=== PATIENT | female | born 1980 | race Caucasian/White ===

== ENCOUNTER 2017-04-29 14:04 | Inpatient (IN) | payer BC ==
[~2017-04-29] VITALS: Ht 162.6 cm; Wt 79.1 kg
[2017-04-29 14:24] VITALS: BP 135/80
[2017-04-29] MEDS ORDERED: NEWBORN KIT ONE (16:50)
[2017-04-29] MEDS ORDERED: OXYTOCIN 30U/ 0.9% NaCL 500ML 500 ML IV ONE (17:09)
[2017-04-29] MEDS ORDERED: FENTANYL PF 100 MCG/2ML IV PRN (17:30)
[2017-04-29] MEDS ORDERED: ONDANSETRON 2MG/ML, 2ML IVPush PRN (17:30)
[2017-04-29] MEDS ORDERED: FENTANYL PF 100 MCG/2ML IVPush PRN (17:30)
[2017-04-29] MEDS ORDERED: SODIUM CHLORIDE FLUSH 10ML SYR IVF PRN (17:30)
[2017-04-29 17:38] LABS: HEMATOCRIT 42.8 % (34.6-47.8); HEMOGLOBIN 14.4 g/dL (11.7-16.4); WHITE BLOOD COUNT 9.1 x10^3/uL (3.4-10)
[2017-04-30] MEDS ORDERED: AMPICILLIN 2 GM in SODIUM CHLORIDE 0.9% 50 ML IVPB ONE
[2017-04-30] MEDS: LACTATED RINGERS 1,000 ML IV SCH ×4 (03:48→22:46)
[2017-04-30] MEDS: AMPICILLIN 1 GM in SODIUM CHLORIDE 0.9% 50 ML IVPB SCH ×5 (03:59→20:11)
[2017-04-30] MEDS ORDERED: OXYTOCIN 30U/ 0.9% NaCL 500ML 500 ML ONE (08:06)
[2017-04-30] MEDS ORDERED: OXYTOCIN 30U/ 0.9% NaCL 500ML 500 ML IV PRN (08:30)
[2017-04-30] MEDS ORDERED: LIOT5TAB3 HOMEMEDPO (11:56)
[2017-04-30] MEDS ORDERED: THYR60TA PO (11:56)
[2017-04-30] MEDS ORDERED: PREN1TAB60 PO (11:56)
[2017-04-30] MEDS ORDERED: D5%-LACTATED RINGERS 1,000 ML IV SCH (16:30)
[2017-04-30] MEDS: D5%-LACTATED RINGERS 1,000 ML IV SCH (16:30)
[2017-04-30] MEDS ORDERED: BUPIVACAINE/PF 0.25% ONE (21:40)
[2017-04-30] MEDS ORDERED: FENTANYL/BUPIV./NS/PF 250 ML EPIDCONT ONE ×2 (21:40→22:00)
[2017-04-30] MEDS ORDERED: FENTANYL/BUPIV./NS/PF 250 ML EPIDCONT SCH (21:50)
[2017-04-30] MEDS ORDERED: METOCLOPRAMIDE 5 MG/ML, 2ML ONE (22:00)
[2017-04-30] MEDS ORDERED: EPHEDRINE 50 MG/ML, 1ML IVPush PRN (22:00)
[2017-04-30] MEDS ORDERED: BUPIVACAINE 0.25% ONE (22:00)
[2017-04-30] MEDS ORDERED: SODIUM CITRATE/CITRIC ACID 30 ML UDC ONE (22:00)
[2017-04-30] MEDS ORDERED: CEFAZOLIN 1,000 MG ONE (22:00)
[2017-04-30] MEDS ORDERED: LACTATED RINGERS 1,000 ML IVBOLUS PRN (22:00)
[2017-04-30] MEDS ORDERED: NALOXONE 0.4 MG/ML, 1ML IVPush PRN (22:00)
[2017-05-01] MEDS: D5%-LACTATED RINGERS 1,000 ML IV SCH ×2 (00:30→08:30)
[2017-05-01] MEDS ORDERED: SODIUM CITRATE/CITRIC ACID 30 ML UDC ONE ×2 (00:34→06:02)
[2017-05-01] MEDS ORDERED: METOCLOPRAMIDE 5 MG/ML, 2ML ONE ×3 (00:34→06:37)
[2017-05-01] MEDS: LACTATED RINGERS 1,000 ML IV SCH ×2 (03:48→05:50)
[2017-05-01] MEDS: AMPICILLIN 1 GM in SODIUM CHLORIDE 0.9% 50 ML IVPB SCH ×3 (04:00→08:00)
[2017-05-01] MEDS ORDERED: OXYTOCIN 30U/ 0.9% NaCL 500ML 500 ML IV SCH (06:09)
[2017-05-01] MEDS ORDERED: LACTATED RINGERS 1,000 ML IV SCH ×2 (06:09)
[2017-05-01] MEDS ORDERED: FENTANYL PF 100 MCG/2ML ONE ×4 (06:12→06:37)
[2017-05-01] MEDS ORDERED: EPHEDRINE 50 MG/ML, 1ML IVPush PRN (06:30)
[2017-05-01] MEDS ORDERED: FENTANYL PF 100 MCG/2ML IV PRN (06:30)
[2017-05-01] MEDS ORDERED: OXYcodone IR 5MG TABLET PO PRN (06:30)
[2017-05-01] MEDS ORDERED: HYDROcodone/APAP 7.5-325MG/15ML UDC PO PRN (06:30)
[2017-05-01] MEDS ORDERED: OXYcodone/APAP 5/325MG TABLET PO PRN (06:30)
[2017-05-01] MEDS ORDERED: PROMETHAZINE 25 MG/ML, 1ML IV PRN (06:30)
[2017-05-01] MEDS: IBUPROFEN 600 MG TABLET PO SCH ×3 (06:30→18:30)
[2017-05-01] MEDS ORDERED: ALBUTEROL SULFATE 2.5 MG/3 ML NPPB PRN (06:30)
[2017-05-01] MEDS ORDERED: MEPERIDINE/PF 25MG/0.5ML IM PRN (06:30)
[2017-05-01] MEDS ORDERED: ONDANSETRON 2MG/ML, 2ML IVPush PRN (06:30)
[2017-05-01] MEDS ORDERED: MEPERIDINE/PF 50 MG/ML IM PRN (06:30)
[2017-05-01] MEDS ORDERED: hydrALAzine 20 MG/ML, 1ML IV PRN (06:30)
[2017-05-01] MEDS ORDERED: HYDROmorphone 1 MG/ML, 1ML IV PRN (06:30)
[2017-05-01] MEDS ORDERED: MEPERIDINE/PF 25MG/0.5ML IVPush PRN (06:30)
[2017-05-01] MEDS ORDERED: ONDANSETRON 2MG/ML, 2ML IV PRN (06:30)
[2017-05-01] MEDS ORDERED: morphine SULFATE 10 MG/ML, 1ML IVPush PRN ×2 (06:30)
[2017-05-01] MEDS ORDERED: SIMETHICONE 80 MG CHEW TAB PO PRN (06:30)
[2017-05-01] MEDS ORDERED: CALCIUM CARBONATE 500 MG TAB.CHEW PO PRN (06:30)
[2017-05-01] MEDS ORDERED: OXYcodone 5 MG/5 ML ORAL.SOL UDC PO PRN (06:30)
[2017-05-01] MEDS ORDERED: LABETALOL 5MG/ML, 20ML IV PRN (06:30)
[2017-05-01] MEDS ORDERED: MISOPROSTOL 200 MCG TABLET PR PRN (06:30)
[2017-05-01] MEDS ORDERED: CITRIC ACID/SODIUM CITRATE ORAL SOL ONE (06:37)
[2017-05-01] MEDS ORDERED: KETOROLAC 30 MG/1 ML ONE (06:37)
[2017-05-01] MEDS ORDERED: LIDOCAINE 2%, 10ML ONE (06:37)
[2017-05-01] MEDS ORDERED: CEFAZOLIN 1,000 MG ONE (06:37)
[2017-05-01] MEDS ORDERED: morphine SULFATE/PF 1 MG/ML, 10ML ONE (07:11)
[2017-05-01] MEDS ORDERED: MISOPROSTOL 200 MCG TABLET ONE (08:46)
[2017-05-01] MEDS ORDERED: HYDROcodone/APAP 5/325 TABLET ONE (08:46)
[2017-05-01] MEDS ORDERED: OXYcodone/APAP 5/325MG TABLET ONE (08:58)
[2017-05-01] MEDS: DOCUSATE 100 MG CAPSULE PO SCH ×2 (09:00→21:48)
[2017-05-01] MEDS: PRENATAL VIT/IRON/FA 1 EACH TABLET PO SCH (09:00)
[2017-05-01] MEDS ORDERED: HYDROcodone/APAP 7.5-325MG/15ML UDC PO ONE (09:00)
[2017-05-01] MEDS: OXYcodone/APAP 5/325MG TABLET PO PRN ×2 (09:12→17:35)
[2017-05-01 09:30] VITALS: BP 104/60
[2017-05-01] MEDS ORDERED: METHYLERGONOVINE 0.2 MG/ML IM ONE (09:48)
[2017-05-01] MEDS ORDERED: METHYLERGONOVINE 0.2 MG/ML IM PRN (10:00)
[2017-05-01] MEDS: KETOROLAC 30 MG/1 ML IV SCH ×2 (12:30→19:13)
[2017-05-01] MEDS: OXYcodone IR 5MG TABLET PO PRN ×2 (13:20→21:48)
[2017-05-01 14:14] VITALS: BP 108/72
[2017-05-01 15:31] LABS: HEMATOCRIT 33.6 % (34.6-47.8); HEMOGLOBIN 11.4 g/dL (11.7-16.4); WHITE BLOOD COUNT 15.4 x10^3/uL (3.4-10)
[2017-05-01 19:40] VITALS: BP 112/62
[2017-05-02] MEDS: IBUPROFEN 600 MG TABLET PO SCH ×5 (00:30→22:22)
[2017-05-02 01:00] VITALS: BP 131/80
[2017-05-02] MEDS: KETOROLAC 30 MG/1 ML IV SCH ×2 (01:14→07:30)
[2017-05-02] MEDS: OXYcodone/APAP 5/325MG TABLET PO PRN ×4 (01:20→20:16)
[2017-05-02] MEDS: OXYcodone IR 5MG TABLET PO PRN (05:39)
[2017-05-02 07:45] VITALS: BP 111/69
[2017-05-02] MEDS: DOCUSATE 100 MG CAPSULE PO SCH ×2 (07:53→20:15)
[2017-05-02] MEDS: PRENATAL VIT/IRON/FA 1 EACH TABLET PO SCH (07:53)
[2017-05-02 19:50] VITALS: BP 114/71
[2017-05-03] MEDS: IBUPROFEN 600 MG TABLET PO SCH ×3 (04:49→18:29)
[2017-05-03] MEDS: PRENATAL VIT/IRON/FA 1 EACH TABLET PO SCH (07:54)
[2017-05-03 07:55] VITALS: BP 132/83
[2017-05-03] MEDS: OXYcodone/APAP 5/325MG TABLET PO PRN ×2 (07:55→21:36)
[2017-05-03] MEDS: DOCUSATE 100 MG CAPSULE PO SCH ×2 (07:55→21:35)
[2017-05-03] MEDS: OXYcodone IR 5MG TABLET PO PRN (15:57)
[2017-05-03] MEDS ORDERED: HYDROCORTISONE CRM 2.5%, 20GM TP PRN (22:00)
[2017-05-03 22:20] VITALS: BP 122/75
[2017-05-03] MEDS ORDERED: HYDROCORTISONE OINT 2.5%, 20GM TP PRN (22:30)
[2017-05-04] MEDS: OXYcodone/APAP 5/325MG TABLET PO PRN ×2 (02:16→17:43)
[2017-05-04] MEDS: IBUPROFEN 600 MG TABLET PO SCH ×3 (02:16→17:43)
[2017-05-04] MEDS: OXYcodone IR 5MG TABLET PO PRN ×3 (07:26→21:55)
[2017-05-04] MEDS: PRENATAL VIT/IRON/FA 1 EACH TABLET PO SCH (09:38)
[2017-05-04] MEDS: DOCUSATE 100 MG CAPSULE PO SCH ×2 (09:38→21:55)
[2017-05-04 09:40] VITALS: BP 134/79
[2017-05-04 21:45] VITALS: BP 136/89
[2017-05-05] MEDS: IBUPROFEN 600 MG TABLET PO SCH ×4 (02:22→14:36)
[2017-05-05] MEDS ORDERED: OXYC-302 PO (03:48)
[2017-05-05] MEDS: OXYcodone/APAP 5/325MG TABLET PO PRN ×2 (03:59→14:36)
[2017-05-05] MEDS ORDERED: IBUP-1223 PO (04:19)
[2017-05-05] MEDS ORDERED: DOCU-131 PO (04:20)
[2017-05-05 07:25] VITALS: BP 126/82
[2017-05-05] MEDS: PRENATAL VIT/IRON/FA 1 EACH TABLET PO SCH (08:19)
[2017-05-05] MEDS: DOCUSATE 100 MG CAPSULE PO SCH (08:19)
[2017-05-05] MEDS: OXYcodone IR 5MG TABLET PO PRN (10:15)
== END 2017-05-05 17:25 | disposition home or self-care (01) | DRG 766 ==
LOC: LDOP 14:04 → LDIP 16:10 → 2NW 05-01 09:23
PROVIDERS: ADMIT Student in an Organized Health Care Education/Training Program; ATTEND Student in an Organized Health Care Education/Training Program
PROC: 10D00Z1 Extraction of Products of Conception, Low, Open Approach (ICD-10-PCS; principal; 2017-05-01)
DX: O48.0 Post-term pregnancy (principal); O61.9 Failed induction of labor, unspecified; F32.9 Major depressive disorder, single episode, unspecified; E05.90 Thyrotoxicosis, unspecified without thyrotoxic crisis or storm; Z37.0 Single live birth; O99.284 Endocrine, nutritional and metabolic diseases complicating childbirth; E78.5 Hyperlipidemia, unspecified; E03.9 Hypothyroidism, unspecified; O76 Abnormality in fetal heart rate and rhythm complicating labor and delivery; O99.824 Streptococcus B carrier state complicating childbirth; Z3A.42 42 weeks gestation of pregnancy; Z81.1 Family history of alcohol abuse and dependence; Z80.3 Family history of malignant neoplasm of breast; K59.00 Constipation, unspecified
CPT/HCPCS: 36415; 76815; 85025; 86850; 86900; J0290; J0690; J1885; J2274; J3010; J3490; J2210; J2590; J2765; J7120; J7121